=== PATIENT | female | born 1950 | race African-American/Black ===

== ENCOUNTER 2020-03-27 21:02 | Inpatient (IN) | payer MEDICAID, OTHER ==
[~2020-03-27] VITALS: Ht 175.3 cm; Wt 104.3 kg
[~2020-03-27 21:02] MED LIST: ACETAMINOPHEN500 MG ORAL; METHOCARBAMOL500 MG PO; NORCO 7.5-3251 EACH PO; NORVASC5 MG PO; TRAMADOL HCL50 MG ORAL; TRAZODONE HCL150 MG ORAL; ULTRAM50 MG PO
--- NOTE | 2020-03-27 21:14 | Emergency Room Report ---
History of Present Illness General Chief Complaint: Shortness of breath Source: Patient (Mateo Franklin MD) Present Illness HPI Patient is a 69-year-old female presents after increased shortness of breath for the past 3 days. Denies any fever. Reports having worsening shortness of breath with exertion. Had recent denies any recent increase in baseline leg swelling but states her legs are constantly swollen. Denies any fever. Denies any chills. Prior history of fibromyalgia. (Mateo Franklin MD) Allergies: Coded Allergies: No Known Allergies (Unverified , 12/24/12) COVID-19 Screening Contact w/high risk pt: No (Mateo Franklin MD) Patient History Past Medical History: see triage record, other - Or myalgia (Mateo Franklin MD) Nursing Documentation-PMH Hx Cardiac Problems: Yes - lupus Hx Hypertension: Yes Hx Cancer: No Hx Gastrointestinal Problems: No (Mateo Franklin MD) Review of Systems All Other Systems: negative except mentioned in HPI (Mateo Franklin MD) Physical Exam Sp02 EP Interpretation: reviewed, normal General Appearance: normal inspection, well appearing, no apparent distress, alert, GCS 15 Head: atraumatic ENT: normal ENT inspection, hearing grossly normal, normal voice Neck: normal inspection, full range of motion, supple, no bony tend Respiratory: normal inspection, lungs clear, normal breath sounds, no respiratory distress, no retraction, no wheezing Cardiovascular #1: regular rate, rhythm Gastrointestinal: normal inspection, normal bowel sounds, non tender, soft, no guarding, no hernia Genitourinary: no CVA tenderness Musculoskeletal: normal inspection, back normal, normal range of motion, swelling - bilateral lower extremity edema Neurologic: alert, responsive, speech normal, normal inspection Psychiatric: normal inspection, judgement/insight normal, mood/affect normal (Mateo Franklin MD) Medical Decision Making Diagnostic Impression: Primary Impression: Shortness of breath Additional Impression: Hypoxia ER Course Patient presented for shortness of breath. Differential included but was not limited to anemia, pneumonia, pneumothorax, myocardial infarction, pericardial effusion, congestive heart failure, acidosis. Because of complexity of patient' s case laboratory tests and imaging studies were ordered.Patient was started on supplemental oxygen. Chest x-ray 1 view interpreted by me showed mild cardiac enlargement without any wilbert infiltrate and bilateral vascular congestion. EKG interpreted by me showed right bundle branch block without acute ST or T wave changes. Patient had some prior history of fibromyalgia and was noted to have some bilateral lower extremity swelling. Patient will likely require hospitalization due to slight hypoxemia. This report is dictated with Echo it laborer cook house software which may occasionally lead to discrepancies related to use of this software. Labs Test 03/27/20 21:30 White Blood Count 6.5 K/UL (4.8-10.8) Red Blood Count 5.29 M/UL (4.20-5.40) Hemoglobin 14.8 G/DL (12.0-16.0) Hematocrit 47.1 % (37.0-47.0) Mean Corpuscular Volume 89 FL (80-99) Mean Corpuscular Hemoglobin 27.9 PG (27.0-31.0) Mean Corpuscular Hemoglobin Concent 31.4 G/DL (32.0-36.0) Red Cell Distribution Width 12.4 % (11.6-14.8) Platelet Count 185 K/UL (150-450) Mean Platelet Volume 6.6 FL (6.5-10.1) Neutrophils (%) (Auto) 78.6 % (45.0-75.0) Lymphocytes (%) (Auto) 14.3 % (20.0-45.0) Monocytes (%) (Auto) 6.4 % (1.0-10.0) Eosinophils (%) (Auto) 0.1 % (0.0-3.0) Basophils (%) (Auto) 0.5 % (0.0-2.0) Sodium Level 141 MMOL/L (136-145) Potassium Level 3.6 MMOL/L (3.5-5.1) Chloride Level 104 MMOL/L (98-107) Carbon Dioxide Level 26 MMOL/L (21-32) Anion Gap 11 mmol/L (5-15) Blood Urea Nitrogen 8 mg/dL (7-18) Creatinine 0.9 MG/DL (0.55-1.30) Estimat Glomerular Filtration Rate > 60 mL/min (>60) Glucose Level 129 MG/DL (74-106) Lactic Acid Level 1.50 mmol/L (0.4-2.0) Calcium Level 9.9 MG/DL (8.5-10.1) Phosphorus Level 2.4 MG/DL (2.5-4.9) Magnesium Level 2.1 MG/DL (1.8-2.4) Total Bilirubin 0.5 MG/DL (0.2-1.0) Aspartate Amino Transf (AST/SGOT) 22 U/L (15-37) Alanine Aminotransferase (ALT/SGPT) 20 U/L (12-78) Alkaline Phosphatase 141 U/L (46-116) Total Creatine Kinase 108 U/L (26-308) Creatine Kinase MB 1.8 NG/ML (0.0-3.6) Creatine Kinase MB Relative Index 1.6 Troponin I 0.095 ng/mL (0.000-0.056) Pro-B-Type Natriuretic Peptide 1217 pg/mL (0-125) Total Protein 8.7 G/DL (6.4-8.2) Albumin 4.0 G/DL (3.4-5.0) Globulin 4.7 g/dL Albumin/Globulin Ratio 0.9 (1.0-2.7) (Mateo Franklin MD) ER Course Patient signed out to me from previous provider pending admission for CHF exacerbation and possible COVID-19 infection. At the time of signout we were waiting approval for admission to our hospital versus transfer to short-term hospital. The patient has been approved to stay. Per her insurance plan should be admitted to Dr. Marcos. Will admit to telemetry service. (Jone Wang MD) EKG Diagnostic Results Rate: normal Rhythm: NSR ST Segments: no acute changes - 104 (Mateo Franklin MD) Status: unchanged (Mateo Franklin MD) Disposition: ADMITTED INPATIENT Condition: Stable Scripts Methocarbamol* (ROBAXIN-500*) 500 Mg Tablet 500 MG ORAL TID PRN, #15 TAB 0 Refills Prov: Moy Marcos MD 03/30/20 Furosemide* (LASIX*) 20 Mg Tablet 20 MG ORAL DAILY for 30 Days, #30 TAB Prov: Moy Marcos MD 03/30/20 Amlodipine Besylate (Norvasc) 5 Mg Tab 5 MG PO DAILY for 30 Days, #30 TAB Prov: Moy Marcos MD 03/30/20 Mateo Franklin MD March 27, 2020 21:14 Jone Wang MD March 28, 2020 00:39
--- NOTE | 2020-03-27 21:15 | NUR ---
ED Nurse Note: PT CAME FROM HOME C/O SOB X4 DAYS. PT DOES NOT PRESENT WITH FEVER OR COUGH. PT 02 SAT AT 92% ON RA AT TRIAGE. PT IS PLACED ON 2L AND NOW SATTING AT 98%. PT PLACED IN GOWN AND MONITOR IN DROPLET PRECAUTION WITH MASK ON. VSS, NAD, AAOX4, AMBULATORY WITH UNSTEADY GAIT. PT DENIES CONTACT WITH HIGH RISK INDIVIDUALS OR RECENT FEVER.
[2020-03-27 21:20] VITALS: BP 146/83
--- NOTE | 2020-03-27 21:20 | NUR ---
ED Nurse Note: BLOOD AND COVID SWAB COLLECTED AND SENT TO LAB. COULD NOT PRODUCE URINE AT THIS TIME. WILL ATTEMPT LATER.
--- NOTE | 2020-03-27 21:23 | NUR ---
ED Nurse Note: XR AT BEDSIDE
[2020-03-27 22:05] LABS: BASOPHILS % (AUTO) 0.5 % (0.0-2.0); EOSINOPHILS % (AUTO) 0.1 % (0.0-3.0); HEMATOCRIT 47.1 % (37.0-47.0); HEMOGLOBIN 14.8 G/DL (12.0-16.0); LYMPHOCYTES % (AUTO) 14.3 % (20.0-45.0); MEAN CORPUSCULAR VOLUME 89 FL (80-99); MONOCYTES % (AUTO) 6.4 % (1.0-10.0); NEUTROPHILS % (AUTO) 78.6 % (45.0-75.0); PLATELET COUNT 185 K/UL (150-450); RED BLOOD COUNT 5.29 M/UL (4.20-5.40); RED CELL DISTRIBUTION WIDTH 12.4 % (11.6-14.8); WHITE BLOOD COUNT 6.5 K/UL (4.8-10.8)
[2020-03-27 22:13] LABS: ANION GAP 11 mmol/L (5-15); BLOOD UREA NITROGEN 8 mg/dL (7-18); CALCIUM 9.9 MG/DL (8.5-10.1); CARBON DIOXIDE 26 MMOL/L (21-32); CHLORIDE 104 MMOL/L (98-107); CREATININE 0.9 MG/DL (0.55-1.30); POTASSIUM 3.6 MMOL/L (3.5-5.1); SODIUM 141 MMOL/L (136-145)
[2020-03-27 22:27] LABS: ALANINE AMINOTRANSFERASE 20 U/L (12-78); ALBUMIN/GLOBULIN RATIO 0.9 (1.0-2.7); ALKALINE PHOSPHATASE 141 U/L (46-116); ASPARTATE AMINO TRANSFERASE 22 U/L (15-37); BILIRUBIN,TOTAL 0.5 MG/DL (0.2-1.0); CKMB 1.8 NG/ML (0.0-3.6); CREATINE KINASE 108 U/L (26-308); PHOSPHORUS 2.4 MG/DL (2.5-4.9)
[2020-03-27] MEDS ORDERED: Aspirin Baby 81mg ORAL ONE (22:45)
[2020-03-27] MEDS ORDERED: Morphine Sulfate 2mg/ml Inj(IV/IM USE ONLY) IVP ONE (22:45)
--- NOTE | 2020-03-27 23:04 | NUR ---
ED Nurse Note: urine collected and sent to lab
[2020-03-27 23:17] LABS: APPEARANCE,URINE CLEAR; BILIRUBIN, URINE NEGATIVE (NEGATIVE); COLOR,URINE PALE YELLOW; GLUCOSE, URINE (UA) NEGATIVE (NEGATIVE); KETONES,URINE NEGATIVE (NEGATIVE); LEUKOCYTE ESTERASE ,URINE 3+ (NEGATIVE); NITRITE,URINE NEGATIVE (NEGATIVE); PH,URINE 7 (4.5-8.0); PROTEIN,URINE NEGATIVE (NEGATIVE); UROBILINOGEN,URINE NORMAL MG/DL (0.0-1.0)
[2020-03-28] VITALS (7 sets, daily range): BP systolic 123–144; BP diastolic 68–82
[2020-03-28] MEDS ORDERED: Acetaminophen 650 MG SUPP RECTAL PRN (00:45)
[2020-03-28] MEDS ORDERED: Morphine Sulfate 2mg/ml Inj(IV/IM USE ONLY) IVP PRN (00:45)
--- NOTE | 2020-03-28 00:51 | NUR ---
ED Nurse Note: GAVE REPORT TO ROSSI HAMMOND. PER ROSSI, BRING PATIENT UP AT 0100.
--- NOTE | 2020-03-28 01:10 | NUR ---
TRANSFER TO FLOOR: Patient transferred to [facility] via [facility] in stable condition via transport 19 protocol as ordered, per dr. Marcos. Report given to Tashi HAMMOND. Belongings sent with patient.
--- NOTE | 2020-03-28 01:30 | NUR ---
NURSE NOTES: Pt arrived via gurney from ER. Got report from Vishal HAMMOND. Pt is here for hypoxia/SOB/ R/O Covid-19. Initial assessment done. Denies any pain or n/v. Pt is fully alert and able to answer all of my questions. VSS BP:123/68 HR:90 T:97.9 R:20 O2:95% on 2L NC. No skin issues noted. Pt has BLE swelling. Pt is ambulatory with unsteady gait/weakness. Pt is continent uses bedside commode. Pt has R AC 20g saline locked intact and patent. quality assurance monitor final placed on pt running Sinus Rhythm on the monitor. Pt resting in bed comfortably. Bed in low and locked position, call light within reach, bedside table within reach. Continue to monitor. Orders placed by Dr. Marcos/Felipe
[2020-03-28 06:58] LABS: BASOPHILS % (AUTO) 0.4 % (0.0-2.0); EOSINOPHILS % (AUTO) 0.2 % (0.0-3.0); HEMATOCRIT 40.3 % (37.0-47.0); HEMOGLOBIN 13.7 G/DL (12.0-16.0); MEAN CORPUSCULAR VOLUME 83 FL (80-99); MONOCYTES % (AUTO) 8.1 % (1.0-10.0); NEUTROPHILS % (AUTO) 65.3 % (45.0-75.0); PLATELET COUNT 174 K/UL (150-450); RED BLOOD COUNT 4.86 M/UL (4.20-5.40); RED CELL DISTRIBUTION WIDTH 10.6 % (11.6-14.8); WHITE BLOOD COUNT 6.1 K/UL (4.8-10.8)
--- NOTE | 2020-03-28 07:20 | NUR ---
HAND-OFF: Report given to Theresa HAMMOND.
[2020-03-28 07:40] LABS: ANION GAP 9 mmol/L (5-15); BLOOD UREA NITROGEN 6 mg/dL (7-18); CALCIUM 9.1 MG/DL (8.5-10.1); CARBON DIOXIDE 27 MMOL/L (21-32); CHLORIDE 107 MMOL/L (98-107); CREATININE 0.9 MG/DL (0.55-1.30); POTASSIUM 3.6 MMOL/L (3.5-5.1); SODIUM 143 MMOL/L (136-145)
--- NOTE | 2020-03-28 08:00 | NUR ---
NURSE NOTES: recvd pt. Pt is AOX4, pt is NC @2L. Pt denies cp, n/v. No skin issues noted. Swelling noted in BLE. Pt has R AC 20g saline locked c/d/i. car changer is showing SR with BBB. Bed in low and locked position, call light within reach, bedside table within reach. Continue to monitor.
--- NOTE | 2020-03-28 08:05 | NUR ---
CASE MANAGEMENT:REVIEW 69 YR OLD FEMALE FROM HOME TO ER CC; SOB SI: HYPOXIA. SUSPECTED COVID 19 98.8 102 23 146/83 92% ON RA GLUCOSE+129 TROPONIN(+)0.095 IS: PLACED ON 2L/NC IV LASIX X1 ASA PO X1 IV MORPHINE X1 URINE CX COVID 19 SWAB BLOOD CX CHEST XRAY : TO TELEMETRY PLAN: ISOLATION PENDING COVID RESULTS
--- NOTE | 2020-03-28 09:03 | Diagnostic Imaging Report ---
Procedure: XRAY Chest 1v Reason for study: Reason For Exam: SOB Comparison films: None. FINDINGS: A single one view chest is obtained. Vascularity is normal. There is minimal dependent atelectasis. Cardiac and mediastinal silhouette are within normal limits. CP angles are sharp. The bony thorax appear unremarkable. IMPRESSION: NO ACUTE CARDIOPULMONARY DISEASE.
--- NOTE | 2020-03-28 09:38 | NUR ---
*-* INSURANCE*-* ALL CLINICALS AND REVIEWS HAVE BEEN FAXED TO: [facility] NCM:KOBE P: [phone] F: [phone] Addendum: 03/28/20 at 1005 by KEREN HANEY CM Ref#[id number]
--- NOTE | 2020-03-28 09:38 | NUR ---
*-* NO INSURANCE INFORMATION IN THE BAR UNABLE TO SEND CLINICALS OR REVIEWS *-*
[2020-03-28] MEDS ORDERED: Furosemide 40mg tab ORAL SCH (14:00)
[2020-03-28] MEDS ORDERED: traMADol 50mg tab ORAL SCH (14:00)
[2020-03-28] MEDS ORDERED: Acetaminophen 500mg (ES) tab ORAL SCH (14:00)
[2020-03-28] MEDS ORDERED: HYDROcodone/Acetamin 7.5/325 tab ORAL SCH (14:00)
[2020-03-28] MEDS ORDERED: traMADol 50mg tab ORAL PRN ×2 (14:00→15:00)
[2020-03-28] MEDS ORDERED: Acetaminophen 500mg (ES) tab ORAL PRN (15:00)
[2020-03-28] MEDS ORDERED: HYDROcodone/Acetamin 7.5/325 tab ORAL PRN (15:00)
--- NOTE | 2020-03-28 16:57 | NUR ---
NURSE NOTES: recvd pt. Pt is AOX4, pt is NC @2L. Pt denies cp, n/v. No skin issues noted. Swelling noted in BLE. Pt has R AC 20g saline locked c/d/i. quality assurance monitor final is showing SR with BBB. Bed in low and locked position, call light within reach, bedside table within reach. Continue to monitor.
--- NOTE | 2020-03-28 18:00 | History and Physical Report ---
DATE OF ADMISSION: 03/28/2020 HISTORY OF PRESENT ILLNESS: This is a very pleasant 69-year-old female admitted to the hospital with shortness of breath. Patient reports that she lives at home and is isolated, but does have a caregiver who comes and visits her. She came with shortness of breath. Denies any fever. She has a mild cough. Patient reports history of fibromyalgia and hypertension. PAST MEDICAL HISTORY: Fibromyalgia, lupus, hypertension. HOME MEDICATIONS: Reviewed and reconciled in the chart. REVIEW OF SYSTEMS: Denies any headaches, hematemesis, melena, hematochezia, night sweats, or weight loss. PHYSICAL EXAMINATION: GENERAL: Reveals a 69-year-old female. HEENT: Unremarkable. CHEST: Clear breath sounds bilaterally with normal heart sounds. ABDOMEN: Soft. EXTREMITIES: There is no edema. VITAL SIGNS: Blood pressure 140/70, heart rate 84, respirations 20, she is afebrile, O2 saturation 96% on 2 L of oxygen. LABORATORY DATA: Lab testing is unremarkable. Normal CBC and BMP. Troponin 0.09 and 0.05. X-ray chest shows clear lung peters bilaterally. IMPRESSION: 1. Troponin leak. 2. Shortness of breath. 3. Fibromyalgia. 4. Lupus. DISCUSSION: Admit to the hospital. We will check serial troponins. Continue current care. We will consult Cardiology. We will follow as galvanometer assembler. Moy Marcos M.D. DR: AIYANA JOB#: [id number] CC:
--- NOTE | 2020-03-28 19:15 | NUR ---
NURSE NOTES: Got report from Theresa HAMMOND. Pt in stable condition. Denies any pain. Denies any n/v or SOB. No s/s of distress or discomfort noted. Pt resting in bed comfortably. Bed in low and locked position, call light within reach, bedside table within reach. Continue to monitor.
[2020-03-28] MEDS: TraZODone 100mg tab ORAL SCH (20:40)
[2020-03-28] MEDS: Heparin 5000 units/ml inj SUBQ SCH (20:41)
[2020-03-28] MEDS: HYDROcodone/Acetamin 7.5/325 tab ORAL PRN (20:46)
[2020-03-29] VITALS: BP 117/64
[2020-03-29 04:00] VITALS: BP 132/73
[2020-03-29] MEDS: HYDROcodone/Acetamin 7.5/325 tab ORAL PRN ×3 (06:52→23:35)
[2020-03-29 06:59] LABS: BASOPHILS % (AUTO) 0.5 % (0.0-2.0); EOSINOPHILS % (AUTO) 0.7 % (0.0-3.0); HEMATOCRIT 39.7 % (37.0-47.0); HEMOGLOBIN 13.3 G/DL (12.0-16.0); LYMPHOCYTES % (AUTO) 28.1 % (20.0-45.0); MEAN CORPUSCULAR VOLUME 83 FL (80-99); MONOCYTES % (AUTO) 8.9 % (1.0-10.0); NEUTROPHILS % (AUTO) 61.9 % (45.0-75.0); PLATELET COUNT 169 K/UL (150-450); RED BLOOD COUNT 4.76 M/UL (4.20-5.40); RED CELL DISTRIBUTION WIDTH 10.7 % (11.6-14.8); WHITE BLOOD COUNT 5.6 K/UL (4.8-10.8)
--- NOTE | 2020-03-29 07:10 | NUR ---
HAND-OFF: Report given to Grace HAMMOND.
[2020-03-29 07:31] LABS: ANION GAP 8 mmol/L (5-15); BLOOD UREA NITROGEN 11 mg/dL (7-18); CARBON DIOXIDE 27 MMOL/L (21-32); CHLORIDE 106 MMOL/L (98-107); CREATININE 0.9 MG/DL (0.55-1.30); POTASSIUM 3.7 MMOL/L (3.5-5.1); SODIUM 141 MMOL/L (136-145)
--- NOTE | 2020-03-29 07:58 | NUR ---
NURSE NOTES: Received report from STEPHANY Akins. Pt A/O x4, denies any pain, complains of nausea. Per pt, she started to experience feeling nauseous after eating breakfast. PRN medication offered, pt refused for now. Instructed pt to not get up, do relaxation/breathing exercises, and press the call light when feeling gets worst. IV site on R AC patent and asymptomatic. Bed on lowest position, call light within reach. Will continue plan of care. Addendum: 03/29/20 at 0804 by Grace Jacques RN No s/sx of acute distress. Pt on 2L NC.
[2020-03-29 08:00] VITALS: BP 139/77
[2020-03-29] MEDS: Aspirin Baby 81mg ORAL SCH ×2 (08:36→10:01)
[2020-03-29] MEDS: Heparin 5000 units/ml inj SUBQ SCH ×2 (08:38→21:00)
--- NOTE | 2020-03-29 08:44 | NUR ---
CASE MANAGEMENT:REVIEW 03/29/20 SI: HYPOXIA. SUSPECTED COVID 19. UTI LUPUS. FIBROMYALGIA 98.0 62 18 139/77 96% ON 2L/NC TROPONIN(-) IS: ASA PO QD HEPARIN SQ Q12 TRAZODONE PO QHS NORVASC PO QD NORCO PO Q6HRS PRN : TELEMETRY STATUS DCP: FROM HOME WITH VISITING CAREGIVER PLAN: F/U ON PENDING COVID 19 SWABBED ON 03/26/20
--- NOTE | 2020-03-29 09:58 | Pulmonology Progress Note ---
Subjective Interval Events: None new; feeling better Constitutional: Reports: no symptoms HEENT: Repors: no symptoms Respiratory: Reports: no symptoms Cardiovascular: Reports: no symptoms Gastrointestinal/Abdominal: Reports: no symptoms Genitourinary: Reports: no symptoms Neurologic: Reports: no symptoms Allergies: Coded Allergies: No Known Allergies (Unverified , 12/24/12) Objective Last 24 Hour Vital Signs Date Time Temp Pulse Resp B/P (MAP) Pulse Ox O2 Delivery O2 Flow Rate FiO2 03/29/20 08:00 98.0 62 18 139/77 (97) 96 03/29/20 07:24 98.1 03/29/20 04:00 98.1 74 20 132/73 (92) 97 03/29/20 04:00 63 03/29/20 00:00 71 03/29/20 00:00 97.6 78 20 117/64 (81) 97 03/28/20 21:00 Nasal Cannula 2.0 03/28/20 20:00 85 03/28/20 20:00 99.0 97 20 135/74 (94) 95 03/28/20 16:11 83 141/82 03/28/20 16:00 97.8 81 20 133/73 (93) 97 03/28/20 16:00 80 03/28/20 12:00 97.7 78 20 141/82 (101) 97 03/28/20 12:00 83 Intake and Output 03/28/20 03/29/20 19:00 07:00 Intake Total 324 ml Balance 324 ml Intake Oral 324 ml # Voids 3 3 General Appearance: no acute distress HEENT: normocephalic Respiratory: chest wall non-tender, lungs clear Cardiovascular: normal peripheral pulses Abdomen: normal bowel sounds Extremities: no cyanosis Microbiology Date/Time Source Procedure Growth Status 03/27/20 21:45 Blood Blood Culture - Preliminary NO GROWTH AFTER 24 HOURS Resulted 03/27/20 21:30 Blood Blood Culture - Preliminary NO GROWTH AFTER 24 HOURS Resulted 03/27/20 22:50 Urine,Clean Catch Urine Culture - Preliminary Mixed Gram Positive Organism Resulted Laboratory Tests 03/29/20 05:52: White Blood Count 5.6, Red Blood Count 4.76, Hemoglobin 13.3, Hematocrit 39.7, Mean Corpuscular Volume 83, Mean Corpuscular Hemoglobin 27.9, Mean Corpuscular Hemoglobin Concent 33.4, Red Cell Distribution Width 10.7L, Platelet Count 169, Mean Platelet Volume 5.6L, Neutrophils (%) (Auto) 61.9, Lymphocytes (%) (Auto) 28.1, Monocytes (%) (Auto) 8.9, Eosinophils (%) (Auto) 0.7, Basophils (%) (Auto ) 0.5, D-Dimer 6.90H, Sodium Level 141, Potassium Level 3.7, Chloride Level 106 , Carbon Dioxide Level 27, Anion Gap 8, Blood Urea Nitrogen 11, Creatinine 0.9, Estimat Glomerular Filtration Rate > 60, Glucose Level 95, Calcium Level 9.0, Troponin I 0.003 Current Medications Medications (Trade) Dose Ordered Sig/Kwabena Route PRN Reason Start Time Stop Time Status Last Admin Dose Admin Acetaminophen (Tylenol) 500 mg Q4H PRN ORAL Mild Pain (Pain Scale 1-3) 03/28/20 15:00 04/27/20 14:59 Acetaminophen (Tylenol) 650 mg PRN PRN RECTAL TEMP>100.5 03/28/20 00:45 Acetaminophen/ Hydrocodone Bitart ([place] 7.5/325) 1 tab Q6H PRN ORAL SEVERE PAIN (7-10) 03/28/20 15:15 04/04/20 14:59 03/29/20 06:52 Amlodipine Besylate (Norvasc) 5 mg DAILY ORAL 03/28/20 15:00 04/27/20 14:59 03/28/20 16:11 Aspirin (ASA) 81 mg DAILY ORAL 03/29/20 09:00 05/13/20 08:59 Dextrose (Dextrose 50%) 25 ml Q30M PRN IV Hypoglycemia 03/28/20 13:45 06/26/20 13:44 Dextrose (Dextrose 50%) 50 ml Q30M PRN IV Hypoglycemia 03/28/20 13:45 06/26/20 13:44 Heparin Sodium (Porcine) (Heparin 5000 units/ml) 5,000 units EVERY 12 HOURS SUBQ 03/28/20 21:00 05/12/20 20:59 03/29/20 08:38 Methocarbamol (Robaxin) 500 mg BIDPRN PRN ORAL Breakthrough Pain 03/28/20 14:00 04/27/20 13:59 Morphine Sulfate (Morphine Sulfate) 2 mg PRN PRN IVP Moderate Pain (Pain Scale 4-6) 03/28/20 00:45 Tramadol HCl (Ultram) 50 mg Q6H PRN ORAL moderate pain (4-6) 03/28/20 15:00 04/04/20 14:59 Trazodone HCl (Desyrel) 150 mg BEDTIME ORAL 03/28/20 21:00 04/27/20 20:59 03/28/20 20:40 Assessment/Plan Assessment/Plan IMPRESSION: 1. Troponin leak. 2. Shortness of breath. 3. Fibromyalgia. 4. Lupus. 5. Possible UTI DISCUSSION: Troponin trended; now normal Cardiology consult ECHO pending I will follow as goggles assembler. Leandro Jaimes Omar Syed MD March 29, 2020 09:58
--- NOTE | 2020-03-29 10:53 | NUR ---
NURSE NOTES: Dr Marcos made aware of D-dimer result 6.9. No new orders. Addendum: 03/29/20 at 1306 by Grace Jacques RN Dr Marcos ordered Rajwinder GALEANO for N/V. Pt vomited 2x today.
--- NOTE | 2020-03-29 10:55 | NUR ---
*-* INSURANCE*-* ALL CLINICALS AND REVIEWS HAVE BEEN FAXED TO: [facility] Ref#[id number] JAKE:KOBE P: [phone] F: [phone]
[2020-03-29 11:58] VITALS: BP_SYST 104; BP_DIAS 47; BP_DIAS 77
--- NOTE | 2020-03-29 13:38 | NUR ---
DISCHARGE PLANNING PATIENT IS FROM HOME AND HAS A INTERMITTENT CUSTOMER SERVICE CLERK NOT READY FOR DISCHARGE TODAY ~ COVID 19 RESULTS ARE PENDING BLOOD PRESSURE LOW 104/47 WEAN OFF OXYGEN
[2020-03-29 16:00] VITALS: BP 135/72
--- NOTE | 2020-03-29 19:06 | NUR ---
HAND-OFF: Report given to CARO Donaldson. Pt in stable condition, endorsed plan of care.
--- NOTE | 2020-03-29 19:55 | NUR ---
NURSE NOTES: RECEIVED PATIENT LYING IN BED, AWAKE, ALERT/ORIENTED X4, VERBALLY RESPONSIVE. PATIENT STATED THAT SHE HAS HAD TOO MANY MEDICATIONS, DOES NOT WANT SCHEDULED TRAZADONE TONIGHT; EXPLAINED BENEFITS OF MEDICATION, CONTINUE TO REFUSE MEDICATION. NO SIGNS AND SYMPTOMS OF ACUTE CARDIO RESPIRATORY DISTRESS/SHORTNESS OF BREATH, DENIES CHEST PAIN, EDEMA NOTED TO BILATERAL LOWER EXTREMITIES, ENCOURAGED ELEVATION, TOLERATING WELL. PATIENT CONSTIPATED, NO BM X3 DAYS, LEFT MESSAGE ON MD VOICE MAIL, PATIENT AWARE. SIDE RAILS UP X2, BED IN LOWEST POSITION FOR SAFETY, ENCOURAGED PATIENT TO UTILIZE CALL LIGHT FOR ASSISTANCE, VERBALIZED UNDERSTANDING, CONTINUE WITH CURRENT PLAN OF CARE. NAD.
[2020-03-29 20:00] VITALS: BP 134/68
[2020-03-29] MEDS: Methocarbamol 500mg tab ORAL PRN (20:56)
[2020-03-29] MEDS: TraZODone 100mg tab ORAL SCH (21:00)
[2020-03-30] VITALS: BP 138/69
[2020-03-30 04:00] VITALS: BP 141/63
--- NOTE | 2020-03-30 07:30 | NUR ---
HAND-OFF: Report given to STEPHANY CAMPOS.
--- NOTE | 2020-03-30 07:54 | NUR ---
NURSE NOTES: Received report from Sheela Baldwin LVN. Patient stable, AOx4 with no complaints and no s/sx of distress. RR even and unlabored on RA. Fruit that was ordered was given to her. Side rails upx2, call light within reach, bed low and locked. Will continue to monitor.
[2020-03-30 08:00] VITALS: BP 138/65
[2020-03-30] MEDS: Aspirin Baby 81mg ORAL SCH (09:08)
[2020-03-30] MEDS: Methocarbamol 500mg tab ORAL PRN (09:08)
[2020-03-30] MEDS: Heparin 5000 units/ml inj SUBQ SCH (09:10)
--- NOTE | 2020-03-30 09:23 | NUR ---
CASE MANAGEMENT:REVIEW 03/30/20 SI: HYPOXIA. SUSPECTED COVID 19. UTI PMH: LUPUS. FIBROMYALGIA 99.3 58 16 141/63 94% ON 2L/NC IS: NORVASC PO QD ASA PO QD HEPARIN SQ BID NORCO PO Q6HRS PRN TRAZODONE PO QHS : TELEMETRY STATUS DCP: HOME WHEN STABLE PLAN: COVID-19 SWABBED-PENDING 03/26/2020
--- NOTE | 2020-03-30 10:39 | Pulmonology Progress Note ---
Subjective Interval Events: None new; feeling better Constitutional: Reports: no symptoms HEENT: Repors: no symptoms Respiratory: Reports: no symptoms Cardiovascular: Reports: no symptoms Gastrointestinal/Abdominal: Reports: no symptoms Genitourinary: Reports: no symptoms Neurologic: Reports: no symptoms Allergies: Coded Allergies: No Known Allergies (Unverified , 12/24/12) Objective Last 24 Hour Vital Signs Date Time Temp Pulse Resp B/P (MAP) Pulse Ox O2 Delivery O2 Flow Rate FiO2 03/30/20 09:09 85 138/65 03/30/20 09:00 Nasal Cannula 2.0 03/30/20 08:00 97.9 85 18 138/65 (89) 97 03/30/20 08:00 74 03/30/20 04:00 99.3 100 16 141/63 (89) 94 03/30/20 04:00 58 03/30/20 00:05 98.6 03/30/20 00:00 98.6 75 16 138/69 (92) 97 03/30/20 00:00 78 03/29/20 21:00 Nasal Cannula 2.0 03/29/20 20:00 97.9 73 20 134/68 (90) 100 03/29/20 20:00 76 03/29/20 16:00 97.0 68 18 135/72 (93) 95 03/29/20 15:29 68 03/29/20 11:58 97.5 72 20 104/47 (66) 95 03/29/20 11:35 67 Intake and Output 03/29/20 03/30/20 19:00 07:00 Intake Total 360 ml Balance 360 ml Intake Oral 360 ml # Voids 2 4 # Bowel Movements 1 General Appearance: no acute distress HEENT: normocephalic Respiratory: chest wall non-tender, lungs clear Cardiovascular: normal peripheral pulses Abdomen: normal bowel sounds Extremities: no cyanosis Microbiology Date/Time Source Procedure Growth Status 03/27/20 21:45 Blood Blood Culture - Preliminary NO GROWTH AFTER 48 HOURS Resulted 03/27/20 21:30 Blood Blood Culture - Preliminary NO GROWTH AFTER 48 HOURS Resulted 03/27/20 22:50 Urine,Clean Catch Urine Culture - Final Mixed Gram Positive Organism Complete Current Medications Medications (Trade) Dose Ordered Sig/Kwabena Route PRN Reason Start Time Stop Time Status Last Admin Dose Admin Acetaminophen (Tylenol) 500 mg Q4H PRN ORAL Mild Pain (Pain Scale 1-3) 03/28/20 15:00 04/27/20 14:59 Acetaminophen (Tylenol) 650 mg PRN PRN RECTAL TEMP>100.5 03/28/20 00:45 Acetaminophen/ Hydrocodone Bitart ([place] 7.5/325) 1 tab Q6H PRN ORAL SEVERE PAIN (7-10) 03/28/20 15:15 04/04/20 14:59 03/29/20 23:35 Amlodipine Besylate (Norvasc) 5 mg DAILY ORAL 03/28/20 15:00 04/27/20 14:59 03/30/20 09:09 Aspirin (ASA) 81 mg DAILY ORAL 03/29/20 09:00 05/13/20 08:59 03/30/20 09:08 Dextrose (Dextrose 50%) 25 ml Q30M PRN IV Hypoglycemia 03/28/20 13:45 06/26/20 13:44 Dextrose (Dextrose 50%) 50 ml Q30M PRN IV Hypoglycemia 03/28/20 13:45 06/26/20 13:44 Heparin Sodium (Porcine) (Heparin 5000 units/ml) 5,000 units EVERY 12 HOURS SUBQ 03/28/20 21:00 05/12/20 20:59 03/30/20 09:10 Methocarbamol (Robaxin) 500 mg BIDPRN PRN ORAL Breakthrough Pain 03/28/20 14:00 04/27/20 13:59 03/30/20 09:08 Morphine Sulfate (Morphine Sulfate) 2 mg PRN PRN IVP Moderate Pain (Pain Scale 4-6) 03/28/20 00:45 Ondansetron HCl (Zofran) 4 mg Q6H PRN IVP Nausea & Vomiting 03/29/20 10:30 04/28/20 10:29 03/29/20 17:06 Tramadol HCl (Ultram) 50 mg Q6H PRN ORAL moderate pain (4-6) 03/28/20 15:00 04/04/20 14:59 Trazodone HCl (Desyrel) 150 mg BEDTIME ORAL 03/28/20 21:00 04/27/20 20:59 03/28/20 20:40 Assessment/Plan Assessment/Plan IMPRESSION: 1. Troponin leak. 2. Shortness of breath. 3. Fibromyalgia. 4. Lupus. 5. Possible UTI; culture shows mixed tremaine DISCUSSION: Troponin trended; now normal Cardiology consult ECHO normal I will follow as unit educator. DC planning for home today Moy Marcos M.D. Moy Marcos MD March 30, 2020 10:39
[2020-03-30] MEDS ORDERED: NORVASC5 MG PO (10:44)
[2020-03-30] MEDS ORDERED: FUROSEMIDE20 M1 ORAL (10:44)
[2020-03-30 12:00] VITALS: BP 135/60
--- NOTE | 2020-03-30 12:43 | NUR ---
*-* INSURANCE*-* UPDATED CLINICALS AND REVIEWS HAVE BEEN FAXED TO: [facility] Ref#[id number] NCM:KOBE P: [phone] F: [phone] Addendum: 03/30/20 at 1244 by KEREN HANEY CM DISCHARGE INSTRUCTIONS FAXED TO [email or web address]
--- NOTE | 2020-03-30 13:44 | NUR ---
NURSE NOTES: Patient discharged. Paperwork given. IV and telemetry box discontinued. All belongings with patient including glasses, 2 necklaces and phone with 2 chargers.
[2020-03-30] MEDS ORDERED: ROBAXIN-500MG ORAL (14:33)
--- NOTE | 2020-04-01 23:26 | Discharge Summary ---
Discharge Summary Discharge Summary _ DATE OF ADMISSION: 03/28/2020 DATE OF DISCHARGE: 03/30/2020 DISCHARGED BY: Dr. Ahmet Marcos CONSULTANTS: proBNP was 1371. BRIEF HOSPITAL COURSE: Patient is a 69-year-old female, who was admitted to the hospital due to shortness of breath. Patient lives at home and is isolated, but does have a caregiver who comes and visits her. She denied any fever but had shortness of breath. She also had mild cough. She has history of fibromyalgia and hypertension. Upon evaluation at ED, blood work did not show any leukocytosis. Hemoglobin and hematocrit were stable. Chest x-ray read by ED physician showed mild cardiac enlargement without any wilbert infiltrate and bilateral vascular congestion. Troponin was 0.09. proBNP 1371. EKG was read to have right bundle branch block without acute ST or T wave changes. Patient was admitted to telemetry for evaluation of troponin leak and shortness of breath. Patient was admitted to monitored floor. Cardiac enzymes were monitored. He was placed on heparin for DVT prophylaxis. He was given amlodipine and aspirin. Blood culture did not isolate any growth. Urine culture with mixed gram- positive organisms. Patient was afebrile and saturating well on nasal cannula. Troponin down trended and normalized. Echocardiogram was normal. Patient was eventually cleared for discharge home. FINAL DIAGNOSES: Troponin leak Shortness of breath Fibromyalgia Lupus Possible UTI, culture showed mixed tremaine DISPOSITION: Patient was discharged home. DISCHARGE MEDICATIONS: Refer to Discharge Medication List. DISCHARGE INSTRUCTIONS: Follow-up in a week. I have been assigned to complete a discharge summary on this account, I was not involved with the patient's management.--SHERRI Segura Jacqueline Robles NP April 01, 2020 23:26
--- NOTE | 2020-04-03 13:44 | NUR ---
*-* INSURANCE*-* DISCHARGE SUMMARY HAS BEEN FAXED TO: [facility] Ref#[id number] JAKE:KOBE P: [phone] F: [phone]
--- NOTE | 2020-04-06 00:12 | Coder Physician Query ---
Clarification is required for compliance, coding accuracy, and to reflect severity of illness for this patient Dear Date: 04/06/20 Global Ceo: MAGGIE Rose Patient is a 69-year-old female, who was admitted to the hospital due to shortness of breath. Patient lives at home and is isolated, but does have a caregiver who comes and visits her. She denied any fever but had shortness of breath. She also had mild cough. Patient was admitted to telemetry for evaluation of troponin leak and shortness of breath. Patient was afebrile and saturating well on nasal cannula. Blood culture did not isolate any growth. Urine culture with mixed gram- positive organisms. Patient was afebrile and saturating well on nasal cannula. Troponin down trended and normalized. Echocardiogram was normal FINAL DIAGNOSES: Troponin leak Shortness of breath Fibromyalgia Lupus Possible UTI, culture showed mixed tremaine Please respond to the following question: Can you please clarify the cause of the shortness of breath, if known? PHYSICIAN RESPONSE:___Unknown Physician signature Date Please also document in your Progress Notes and/or Discharge Summary and indicate if the condition was present on admission. KIMMY
== END 2020-03-30 13:40 | disposition home or self-care (01) | DRG 204 ==
LOC: EMR 21:21 → 2E 03-28 00:14 → EDBEDREQ 03-28 00:33
DX: R06.02 Shortness of breath (principal); N39.0 Urinary tract infection, site not specified; R79.89 Other specified abnormal findings of blood chemistry; M79.7 Fibromyalgia; M32.9 Systemic lupus erythematosus, unspecified; I45.10 Unspecified right bundle-branch block; I10 Essential (primary) hypertension
CPT/HCPCS: 36415; 71045; 80048; 80053; 81003; 82550; 82553; 83605; 83735; 83880; 84100; 84484; 85025; 85379; 87040; 87086; 87635; 93005; 93306; 96374; 99285; J2405